=== PATIENT | male | born 1955 | race Caucasian/White ===

== ENCOUNTER 2024-08-24 09:50 | Outpatient (RCR) | payer MEDICARE, SELFPAY | END 2024-09-09 13:34 | disposition home or self-care (01) | LOC: HO.WCC 09:50 | PROVIDERS: PCP Internal Medicine; Visit Provider Surgery | DX: I87.331 Chronic venous hypertension (idiopathic) with ulcer and inflammation of right lower extremity (principal); L97.212 Non-pressure chronic ulcer of right calf with fat layer exposed; I80.01 Phlebitis and thrombophlebitis of superficial vessels of right lower extremity; Q82.0 Hereditary lymphedema; Z87.891 Personal history of nicotine dependence; Z86.718 Personal history of other venous thrombosis and embolism | CPT/HCPCS: 11042; 11045; 17250; 29581; 97597; 99212 ==